=== PATIENT | female | born 1990 | race Hispanic/Latino ===

== ENCOUNTER 2016-08-12 20:09 | Inpatient (IN) | payer MEDICAID ==
[~2016-08-12] VITALS: Ht 134.6 cm; Wt 59.0 kg
[~2016-08-12 20:09] MED LIST: CEPH500C PO
[2016-08-12] MEDS ORDERED: Carboprost 250 mCg/mL Inj IM PRN (20:25)
[2016-08-12] MEDS ORDERED: Sodium Chloride LOK Flush 10 mL Syringe IVFLUSH PRN (20:25)
[2016-08-12] MEDS ORDERED: Penicillin G K Inj 5,000,000 UNITS in Dextrose 5% Minibag Plus 100 ML IV ONE (20:25)
[2016-08-12] MEDS ORDERED: Hemorrhage Kit, Post Partum XX ONE (20:25)
[2016-08-12] MEDS ORDERED: Methylergonovine 0.2 mg/mL Inj IM PRN (20:25)
[2016-08-12] MEDS ORDERED: Oxytocin 30 Units/500 mL LR 30 UNITS in IV Premix 1 EACH IV PRN (20:25)
[2016-08-12] MEDS ORDERED: Oxytocin 10 Unit/mL Inj IM PRN (20:25)
[2016-08-12] MEDS: Lactated Ringer's 1,000 ML IV PRN (21:12)
[2016-08-12 21:57] LABS: Mean Corpuscular Hemoglobin 34.3 pg (27.0-35.0); Mean Corpuscular Volume 99.1 fL (81-100)
[2016-08-13] MEDS: Penicillin G K Inj 3,000,000 UNITS in IV Premix 1 EACH IV SCH ×2 (00:58→05:05)
[2016-08-13] MEDS: Lactated Ringer's 1,000 ML IV PRN ×2 (01:39→07:21)
--- NOTE | 2016-08-13 07:16 | PCM.HPANE ---
Patient Data Surgeon Admitting Provider:Sabine Esparza MD Attending Provider:Sabine Esparza MD Primary Care Physician:Shirley Venegas MD Other Provider:Billy Marshall Anesthesia Reason for Visit Term Labor Check TERM LABOR CHECK Ht/WT & BMI Body Mass Index Allergies Coded Allergies: No Known Allergies (Unverified Allergy, Unknown, 12/15/15) Diabetes History Hx Diabetes?: No Medications Active Scripts Cephalexin 500 Mg [id number] Mg PO TID #30 CAPSULE Prov:Vdial Collins MD 12/15/15 History Cardiovascular History: Denies:: Congestive Heart Failure Hypertension Respiratory History: Denies:: Tuberculosis Hx Diabetes: No Smoking Status: Unknown if Ever Smoker Stop/Bang Risk Assessment Category Category 1A: Patient has history of documented sleep apnea, and HAS NOT received any narcotic, sedative or anesthesia administration during this stay. Category 1B: Patient has history of documented sleep apnea, and HAS received any narcotic , sedative or anesthesia administration during this stay Category 2: Patient has SUSPECTED Obstructive Sleep Apnea, and HAS received any narcotic , sedative or anesthesia administration during this stay. Category 3: Patient has SUSPECTED Obstructive Sleep Apnea and HAS NOT received narcotic, sedative or anesthesia administration during this stay. Category 4: Outpatient in Procedural Areas with known sleep apnea or who screen positive for High Risk via the STOP/BANG questionnaire. Exam Exam Vital Signs Vital Signs Date Time Temp Pulse Resp B/P Pulse Ox O2 Delivery O2 Flow Rate FiO2 08/13/16 06:07 96 General Appearance: Alert, Oriented X3, Cooperative, No Acute Distress HEENT/AIRWAY: MP 2 Lungs: Clear to Auscultation, Normal Air Movement Heart: Exam Unremarkable, Regular Rate/Rhythm, No Murmurs/Rubs/Gallops Meds/Labs/Diagnostics Admission Meds Current Medications Penicillin G Potassium [id number] units/Dextrose/ Water 100 ml @ 240 mls/hr ONCE ONCE IV Last administered on 08/12/16 21:12; Start 08/12/16 at 20:25; Stop at 20:49; Status DC Penicillin G Potassium/ Dextrose/Premix (Pfizerpen Inj/ IV Premix) 50 ml @ 100 mls/hr Q4 IV Last administered on 08/13/16 05:05; Start 08/13/16 at 00:30 Terbutaline Sulfate (Brethine Inj) 1 mg STK-MED ONCE .ROUTE Last administered on 08/13/16t 06:07; Start 08/13/16 at 06:01; Stop 08/13/16 at 06:02; Status DC Labs Test 08/12/16 21:00 White Blood Count 10.9th/mm3 (3.8-10.1) Red Blood Count 3.38mil/mm3 (3.90-5.20) Hemoglobin 11.6g/dL (12.0-15.6) Hematocrit 33.5% (35.0-46.0) Mean Corpuscular Volume 99.1fL (81-100) Mean Corpuscular Hemoglobin 34.3pg (27.0-35.0) Mean Corpuscular Hemoglobin Concent 34.6% (32.0-37.0) Red Cell Distribution Width 12.7% (12.3-15.4) Platelet Count 229bil/L (150-400) Plan Impression Patient chart reviewed, patient interviewed and anesthestic plan with risks, benefits, and alternatives discussed, and informed consent obtained. ASA Physical Status: ASA2 Mod Systemic Disease Anesthetic Plan: SAB Bene/Risks/Altern/Consents: Yes HP Complete Prior to Induction: Yes Other no V/S other than pulse in EMR SAB plus Morphine d/w pt, and family Chaim Zayas MD Aug 13, 2016 07:16
[2016-08-13] MEDS ORDERED: Morphine PF 1 mg/mL 10 mL Inj ONE (07:22)
[2016-08-13] MEDS ORDERED: Lactated Ringer's 1,000 ML IV SCH ×2 (07:43→09:51)
[2016-08-13] MEDS ORDERED: CeFAZolin Inj 2 GM in IV Premix 1 EACH IV SCH (07:45)
[2016-08-13] MEDS ORDERED: Hemorrhage Kit, Post Partum XX ONE ×2 (07:45→09:55)
[2016-08-13] MEDS ORDERED: Carboprost 250 mCg/mL Inj IM PRN ×2 (07:45→09:55)
[2016-08-13] MEDS ORDERED: Methylergonovine 0.2 mg/mL Inj IM PRN ×2 (07:45→09:55)
[2016-08-13] MEDS ORDERED: Sodium Citrate-Citric Acid 15 mL Solution PO SCH (07:45)
[2016-08-13] MEDS ORDERED: Oxytocin 10 Unit/mL Inj IM PRN ×2 (07:45→09:55)
--- NOTE | 2016-08-13 07:49 | HP ---
[address] [address] HISTORY AND PHYSICAL PATIENT: THOMAS AMEZQUITA : 1990 MR#: [id number] ADMIT: 08/12/2016 JOB ID: [id number] HISTORY OF PRESENT ILLNESS: This is a 26-year-old female, 2 para 1, at 39 weeks gestation. She came in for rupture of membranes. She feels leaking of fluid. She was confirmed rupture of membranes at triage. She was examined by triage nurse and noticed to be her cervix was 3 cm dilated, and a thick cervix. It was noted she has a cephalic presentation, with clear fluid. She had contractions irregularly. No other complaints. This is a patient from [facility]. During her care, it was significant for positive GBS from urine culture. Recurrent UTI during the care, and she has herpes during and has been on suppressive management after 36 weeks. She had an ultrasound done about a week ago, which showed stable lie. PAST MEDICAL HISTORY: The patient has declined other medical problems. PAST SURGICAL HISTORY: She had one five years ago. Per patient, was because of intolerance. Per doctor's note, it was because of CPD. The patient decided to have TOLAC, and the consent was signed July 30, 2016. SOCIAL HISTORY: She declined history of drug abuse. Declined smoking and alcohol. PHYSICAL EXAMINATION: The patient is afebrile. Cardiac: RR. No murmur. Pulmonary: Bilaterally clear. Abdomen is soft, gravid, nontender. Pelvic examination: Cervical examination was done by triage nurse, noted to be a cephalic presentation, and cervix was 3 cm dilated. Thick cervix. Clear fluid. The patient has irregular contractions. ASSESSMENT AND PLAN: A 26-year-old female, 2 para 1, at 39 weeks, with rupture of membranes, coming in for trial of labor after . The patient has irregular contractions with rupture of membranes. At this time, we will do expectant management, to see if the patient can go into labor spontaneously. If there is no regular contractions in 6 hours, we will consider induction of labor. She is group-B Strep positive. We will start her on penicillin prophylaxis. The patient can get epidural for pain if she prefers to. The patient has no signs or symptoms of herpes, no active lesions. MTDD
--- NOTE | 2016-08-13 07:52 | PROG NOTE ---
[address] [address] PROGRESS NOTE PATIENT: THOMAS AMEZQUITA : 1990 MR#: [id number] ADMIT: 08/12/2016 JOB ID: [id number] DATE: 08/13/2016 SUBJECTIVE: This is a 26-year-old female, 2, para 1 at 39 weeks . Came in last night because of ruptured membranes. She was noticed to be cephalic presentation at admission, and she was allowed for 6 hours of expected management. She started with the irregular contractions. She started to have regular contractions every 3-4 minutes without induction. The patient has painful contractions and the patient was examined by nurse at around 5:30. At that time, she feels the ear of the head. So she called me for further confirmation of the presentation. When I arrived close to 6:00 to examine the patient, the presenting part is not clear. This may be the buttocks of the fetus or the toes of the fetus. Then bedside ultrasound was performed and noticed it was a breech presentation. At this time, patient has contractions every 3-4 minutes, painful contractions, lasts for about 30 seconds. The cervix was still 3 cm dilated and 70% effaced. The station of the presenting part is about -2 to -3. heart tracing was category 1. ASSESSMENT AND PLAN: A 26-year-old female, 2, para 1 at 39 weeks. Patient started with unstable lie by ultrasound a week ago by cephalic when she presented to [facility]. Noticed at this time to be a breech presentation. Discussed with the patient at this situation, we could not allow her to have ToLAC and she will need a repeat section. Consent signed with customer care specialist machine. Patient understood that for repeat section, there is risk of infection, bleeding, injury to the organs around the uterus including but not limited to the bladder, ureters, major vessels and nerves, and bowels. It is almost 7:00 after the consent was signed. Then this patient will sign out to Dr. Esparza who is on the day shift to perform the and anesthesia was also informed of the plan. The patient is aware of the plan. MADDIE
[2016-08-13] MEDS ORDERED: Ondansetron 2 mg/mL 2 mL Inj IVPUSH PRN (09:05)
[2016-08-13] MEDS ORDERED: EPHEDrine Sulfate 50 mg/mL Inj IVPUSH PRN (09:05)
[2016-08-13] MEDS ORDERED: Atropine 0.4 mg/mL Inj IV PRN (09:05)
[2016-08-13] MEDS ORDERED: fentaNYL-PF 50 mCg/mL 2 mL Inj IVPUSH PRN (09:05)
--- NOTE | 2016-08-13 09:09 | HP ---
[address] [address] HISTORY AND PHYSICAL PATIENT: THOMAS AMEZQUITA : 1990 MR#: [id number] ADMIT: 08/12/2016 JOB ID: [id number] MAJOR COMPLAINT: Patient admitted at 8PM yesterday by Dr. Fisher for trial of labor after section and spontaneous rupture of membranes. The patient was found to have breech presentation this morning. HISTORY OF PRESENT ILLNESS: The patient is a 26-year-old 2, para 1-0-0-1 at 39 weeks 2 days gestational age by 14 week ultrasound who has her complicated with the followin. Prior section x1. due to nonreassuring heart tracing and cephalo-pelvic disproportion (per documentation). 2. Breech presentation confirmed by bedside ultrasound. 3. Recurrent UTI in . 4. Spontaneous rupture of membranes. 5. Genital herpes currently on prophylaxis. ( No lesions upon examination). 6. Low grade EDDIE Pap in 2013. Normal Pap 2015. Low-grade EDDIE in 2016. Plan per Dr. Venegas is repeat colposcopy and ECC . 7. Anemia (on iron b.i.d). 8. GBS bacteriuria. 9. History of multiple sexual partners. counseled patient regarding control options including condoms. PAST OBSTETRICAL HISTORY: In 2010, 41 week ended with a primary section for a nonreassuring heart tracing and cephalopelvic disproportion and the current . PAST GYNECOLOGIC HISTORY: History of abnormal Pap smear as listed above. History of HSV on prophylaxis. PAST MEDICAL HISTORY: 1. Anemia. 2. GBS bacteriuria. PAST SURGICAL HISTORY: Primary section. SOCIAL HISTORY: Denied any alcohol consumption. Denied any drugs of abuse. Denied any cigarette smoking. ALLERGIES: No known drug allergies. MEDICATIONS: 1. Valacyclovir. 2. vitamins. 3. Keflex. 4. Iron for anemia. LABORATORIES: O-positive, antibody negative, rubella immune, serology nonreactive, hepatitis B surface antigen negative. Low-grade EDDIE Pap. CT Chlamydia cultures negative. Quad screen negative. HIV nonreactive. PHYSICAL EXAMINATION: The patient is alert, oriented x3. Vital signs are 114/74 blood pressure. Respirations are 18, pulse is 99, temperature is 36.1 degrees centigrade. Pulse ox is 98% on room air. Heart is regular rate and rhythm. Positive S1, S2. Lungs clear to auscultation bilaterally. Abdomen: Gravid uterus. Lower extremities: No calf tenderness appreciated bilaterally. Bedside ultrasound confirmed breech presentation. Sterile speculum examination confirmed no herpetic lesions. careful inspection of external genitalia showed no lesions as well. Cervical examination 3 cm dilated, cervix 80% effaced, -5 presentation, presenting breech. heart tracing is showing baseline of 150 beats per minute, positive accelerations, no decelerations, moderate variability, category 1 heart tracing. Patient had been on GBS prophylaxis. ASSESSMENT AND PLAN: The patient is a 26-year-old 2, para 1-0-0-1 at 39 weeks and 2 days gestational age with a prior section breech presentation. 1-Will proceed with a repeat . Consent signed. All questions answered through hospital provided jewel bearing driller. 2-Antibiotic prophylaxis. 3-SCDs for DVT prophylaxis. All the above discussed in details with the patient who agreed to the plan. MADDIE
[2016-08-13] MEDS ORDERED: Morphine PF 1 mg/mL 10 mL Inj INTRATHEC ONE (09:15)
[2016-08-13] MEDS ORDERED: Sodium Chloride LOK Flush 10 mL Syringe IVFLUSH PRN (09:55)
[2016-08-13] MEDS ORDERED: Acetaminophen IV 1,000 MG in IV Premix 1 EACH IV PRN (09:55)
[2016-08-13] MEDS ORDERED: hydrOXYzine Pamoate 25 mg Capsule PO PRN (09:55)
[2016-08-13] MEDS ORDERED: LANOlin HPA 7 Gm Ointment TOPICAL PRN (09:55)
[2016-08-13] MEDS ORDERED: Oxytocin 30 Units/500 mL LR 30 UNITS in IV Premix 1 EACH IV PRN (09:55)
--- NOTE | 2016-08-13 10:35 | PCM.ANEP2 ---
Post Anesthesia Evaluation ASA/CMS Post Anesthesia VS in Patient's Normal Range?: Yes Resp Stable; Airway Patent?: Yes CV Function & Hydration Stable: Yes Mental Status Recovered?: Yes Pain control Satisfactory?: Yes N/V Control Satisfactory?: Yes Chaim Zayas MD Aug 13, 2016 10:35
--- NOTE | 2016-08-13 10:35 | PCM.ANEP1 ---
Post Anesthesia Phase 1 PACU Phase 1 Assessment Vital Signs Vital Signs Date Time Temp Pulse Resp B/P Pulse Ox O2 Delivery O2 Flow Rate FiO2 08/13/16 06:07 96 Anesthetic Administered: SAB Level of Alertness: Awake, talking GARCIA's with Equal Strength: No Pain: No Nausea or Vomiting: No Lungs: Clear to Auscultation, Normal Air Movement Chaim Zayas MD Aug 13, 2016 10:35
--- NOTE | 2016-08-13 11:26 | OP ---
[address] [address] OPERATIVE REPORT PATIENT: THOMAS AMEZQUITA : 1990 MR#: [id number] ADMIT: 08/12/2016 JOB ID: [id number] DATE OF SURGERY: 08/13/2016 PREOPERATIVE DIAGNOSIS(ES): 1. A 26-year-old, 2, para 1-0-0-1, at 39 weeks 2 days gestational age by 14 week ultrasound. Admitted with spontaneous rupture of membranes. 2. Prior section x1. Desired trial of labor after for almost 10 hours. The baby was found to be breech presentation, and decision was made to proceed with a repeat section. The patient consented. POSTOPERATIVE DIAGNOSIS(ES): 1. A 26-year-old, 2, para 1-0-0-1, at 39 weeks 2 days gestational age by 14 week ultrasound. Admitted with spontaneous rupture of membranes. 2. Prior section x1. Desired trial of labor after for almost 10 hours. The baby was found to be breech presentation, and decision was made to proceed with a repeat section. The patient consented. PROCEDURE: Repeat low transverse . SURGEON: Sabine Esparza MD. TOPPER PACKER: . ANESTHESIA: Spinal. ESTIMATED BLOOD LOSS: 500 cc. INTRAVENOUS FLUIDS: 1 L of crystalloid. COMPLICATIONS: None. FINDINGS: Single viable female infant with Apgars 7/8, weight of 3336 g. Complete breech presentation sacral anterior. Normal fallopian tubes and ovaries bilaterally. Mild intra-abdominal adhesions. PACKS: None. DRAINS: None. CATHETERS: Jaimes catheter in place. SPECIMENS: Placenta disposed. DESCRIPTION OF PROCEDURE: Risks, benefits, alternatives of the procedure discussed with the patient. Informed consent signed. The patient moved to the OR with IV running. After spinal anesthesia was found to be adequate, the patient was placed in dorsal supine position with a leftward tilt. Patient then prepped and draped in the normal sterile fashion. Pfannenstiel skin incision was made with a scalpel at the site of the prior section scar, and carried down to the underlying rectus fascia with a scalpel. Fascial incision extended bilaterally with Oleary scissors. Inferior aspect of fascial incision was grasped with Konrad clamps, elevated, tented up, and rectus muscles dissected off bluntly and sharply. Attention was turned to the superior aspect of fascial incision, which in a similar fashion was grasped with Konrad clamps, elevated, tented up, rectus muscles dissected off bluntly and sharply. Rectus muscles were then in the midline. Peritoneum identified, entered bluntly with traction and countertraction. Upon good visualization of the bladder, peritoneal incision extended superiorly and inferiorly. Then, the adhesions of the omentum to the abdominal wall were released with Bovie coagulation. Good hemostasis was ensured. Bladder blade inserted. The vesicouterine peritoneum identified, entered sharply with the Metzenbaum scissors. Bladder flap created digitally. The bladder blade reinserted. Uterus incised in midline with scalpel. Uterine incision extended bilaterally with bandage scissors. Complete breech presentation observed, meconium, sacro-anterior position. Baby's feet brought into the hysterotomy and the breech was delivered. With rotational movements both upper extremities were delivered after delivering the trunk and then using Mauriceau-Veit maneuver the head was delivered. Delayed cord clamping allowed for 60 seconds. Cord clamped and cut. handed off to awaiting nurse. Placenta followed spontaneously. Uterus exteriorized, cleared of all clots and debris. The uterine incision repaired in two layers, first with locked, continuous fashion with 0 Vicryl suture, second layer of imbrication with 0 Vicryl suture. Good hemostasis assured. Suction irrigation confirmed hemostasis. Normal fallopian tubes and ovaries bilaterally on inspection. Uterus returned back to the abdomen. Two [id number] of 2-0 chromic sutures applied at the hysterotomy repair to confirm hemostasis. All instruments removed from the patient's abdomen. Muscles were approximated in the midline with interrupted sutures of 2-0 chromic. Fascia closed in a continuous fashion with 0 Vicryl suture. Subcutaneous layer closed with interrupted sutures of 2-0 chromic. Skin closed in a subcuticular fashion with 4-0 Vicryl suture. Steri-Strips and pressure dressing applied. The patient tolerated the procedure well. Sponge, lap, needle and instrument counts were correct x2. The patient was recovered in a stable condition.Good hemostasis confirmed. Dr. Esparza was present and scrubbed for the entire procedure, 2-[facility] medical student year 3, was scrubbed as well. [facility]
[2016-08-13] MEDS ORDERED: Oxytocin 10 Unit/mL Inj ONE (12:07)
[2016-08-14] MEDS: oxyCODONE-Acetamin 5-325 mg Tablet PO PRN ×4 (05:21→21:59)
[2016-08-14 07:44] LABS: Mean Corpuscular Hemoglobin 34.5 pg (27.0-35.0); Mean Corpuscular Volume 102.2 fL (81-100)
[2016-08-14] MEDS: Ascorbic Acid 500 mg Tablet PO SCH (08:17)
--- NOTE | 2016-08-14 14:03 | PROG NOTE ---
[address] [address] PROGRESS NOTE PATIENT: THOMAS AMEZQUITA : 1990 MR#: [id number] ADMIT: 08/12/2016 JOB ID: [id number] DATE: 08/14/2016 SUBJECTIVE: This morning patient was doing well. No complaints. Voiding, ambulating, breast-feeding with no difficulties. OBJECTIVE: Vital signs are 93/61 for blood pressure, respirations are 20, pulse is 75, temperature 36.6 degrees centigrade, pulse ox is 98% on room air. Heart is regular rate and rhythm. Positive S1, S2. Lungs clear to auscultation bilaterally. Abdomen firm. Uterine fundus palpated at the level of the umbilicus. Nontender. Positive bowel sounds. Perineum: No active bleeding. Lower extremities: No calf tenderness appreciated bilaterally. Incision is clean, dry, and intact, with Steri-Strips in place. LABORATORY DATA: H and H this morning is 9.6 and 28.4. Platelets are 245. White blood count is 11.8. ASSESSMENT AND PLAN: The patient is a 26-year-old 2, para 2, postop day number one status post repeat low transverse . Afebrile, with stable vital signs. 1. Anemia. Started on iron and vitamin C. 2. Continue with postop care for now. MTDD
[2016-08-15] MEDS: oxyCODONE-Acetamin 5-325 mg Tablet PO PRN ×3 (01:59→13:38)
--- NOTE | 2016-08-15 07:51 | PCM.DIOB ---
Obstetrical Disch Instruction Date of Service: Aug 15, 2016 Dates of Hospitalization Date of Hospital Admission Aug 12, 2016 at 20:28 Providers Admitting Physician: Sabine Esparza MD Primary Care Physician: Shirley Venegas MD Attending Physician: Sabine Esparza MD Discharge Diagnosis Discharge Diagnosis POD#2 S/P RLTCS., Anemia Problems: Diet Discharge Diet: No restrictions Activity Discharge Activity-General: Pelvic Rest for 6 weeks, No lifting >10 pounds for 4-6 weeks Dressing and Incisional Care Dressing Care: Keep dressing clean, dry & intact Hygiene: May shower Follow Up Plan Follow-up appointment: Weeks (2) Call your provider for: Fever or Chills, Shortness of breath, Heavy vaginal bleeding, Other (excessive pain not controlled with pain medications, abnormal wound discharge.) Sabine Esparza MD Aug 15, 2016 07:51
[2016-08-15] MEDS ORDERED: OXYC1TAB24 PO (07:55)
[2016-08-15] MEDS ORDERED: PREN-56 PO (07:55)
[2016-08-15] MEDS ORDERED: IBUP-1827 PO (07:55)
[2016-08-15] MEDS ORDERED: Ascorbic Acid PO (07:55)
[2016-08-15] MEDS ORDERED: DOCU-41 PO (07:55)
[2016-08-15] MEDS ORDERED: FERR-74 PO (07:55)
--- NOTE | 2016-08-15 08:48 | DIS ---
[address] [address] DISCHARGE SUMMARY PATIENT: THOMAS AMEZQUITA : 1990 MR#: [id number] ADMIT: 08/12/2016 JOB ID: [id number] DIS: 08/15/2016 ADMISSION DIAGNOSIS: Admitted for a trial of labor after at 39 weeks and 2 days. DISCHARGE DIAGNOSIS: 1. Postoperative day #2 status post repeat low-transverse for breech presentation. 2. Anemia. HOSPITAL COURSE: For further details, please refer to the fully dictated notes. On the day of discharge, the patient had no complaints. Voiding, ambulating, tolerating p.o. intake. without difficulty. OBJECTIVE: Vital signs are 104/74 blood pressure, respirations are 18, pulse is 73, temperature 36.2 degrees centigrade. Heart is regular rate and rhythm. Positive S1, S2. Lungs clear to auscultation bilaterally. Abdomen firm uterine fundus palpated at the level of the umbilicus. Nontender. Positive bowel sounds. Perineum: No active bleeding. Incision is clean, dry, and intact with Steri-Strips in place. Appropriate tenderness around the incision. Lower extremities: No calf tenderness appreciated bilaterally. H and H on postop day #1 was 9.6 and 28.4. The patient was started on iron supplementation. DISCHARGE PLAN: The patient will be discharged home in a stable condition and followup with Dr. Esparza in the office in two weeks. Instructed to have nothing in the vagina for six weeks. No heavy lifting more than baby's weight. Instructed to call for fever, chills, severe abdominal pain not controlled with medication, heavy vaginal bleeding, abnormal wound discharge or any other concerning symptoms. DISCHARGE MEDICATIONS: 1. Percocet 5/325, one tablet every 4 hours as needed for severe pain. 2. Ibuprofen 600 every 6 hours as needed for moderate pain. 3. Colace 100 mg twice daily. 4. Vitamin C 500 mg twice daily. 5. Ferrous sulfate 325 mg twice daily. 6. vitamins once daily. The patient understood her discharge instructions. She will comply with her discharge plan. [facility]
[2016-08-15] MEDS: Ascorbic Acid 500 mg Tablet PO SCH (09:26)
[2016-08-15 11:57] VITALS: BP 106/64; PULSE 78; RESP 16
== END 2016-08-15 14:34 | disposition home or self-care (01) | DRG 540 ==
LOC: FBCO 20:09 → FBC 20:28
PROVIDERS: ADMIT Obstetrics & Gynecology; ATTEND Obstetrics & Gynecology
PROC: 10D00Z1 Extraction of Products of Conception, Low, Open Approach (ICD-10-PCS; principal; 2016-08-13 08:07)
DX: O32.1XX0 Maternal care for breech presentation, not applicable or unspecified (principal); A60.04 Herpesviral vulvovaginitis; O34.219 Maternal care for unspecified type scar from previous cesarean delivery; O26.93 Pregnancy related conditions, unspecified, third trimester; O99.02 Anemia complicating childbirth; D64.9 Anemia, unspecified; Z3A.39 39 weeks gestation of pregnancy; Z37.0 Single live birth